=== PATIENT | male | born 1995 | race Caucasian/White ===

== ENCOUNTER 2022-06-26 22:46 | Emergency (ER) | payer SELFPAY ==
[2022-06-26] MEDS ORDERED: Ibuprofen 600 MG Tab PO ONE (23:09)
== END 2022-06-27 00:19 | disposition home or self-care (01) ==
LOC: MW.ED 22:46
DX: S62.511A Displaced fracture of proximal phalanx of right thumb, initial encounter for closed fracture (principal); W55.22XA Struck by cow, initial encounter
CPT/HCPCS: 73140; 99283; A9270; 29131

== ENCOUNTER 2022-07-06 22:38 | Emergency (ER) | payer SELFPAY ==
[2022-07-06] MEDS ORDERED: Sodium Chloride 0.9% 2.5 ML Syringe FLUSH PRN (22:46)
[2022-07-06] MEDS ORDERED: Sodium Chloride 0.9% 10 ML Syringe FLUSH PRN (22:46)
[2022-07-06] MEDS ORDERED: Diphtheria,Pertussis(Acell),Tetanus Vaccine 0.5 ML Syringe IM ONE (22:48)
[2022-07-06] MEDS ORDERED: Sodium Chloride 0.9% 1,000 ML IV ONE (22:48)
[2022-07-06 22:58] LABS: BASOPHILS PERCENT AUTO 0.3 % (0.0-1.5); EOSINOPHILS ABSOLUTE AUTO 0.1 K/uL (0.0-0.7); HEMATOCRIT 46.7 % (38.0-50.0); HEMOGLOBIN 16.4 g/dL (13.0-17.0); LYMPHOCYTES ABSOLUTE AUTO 2.6 K/uL (0.6-2.4); LYMPHOCYTES PERCENT AUTO 18.7 % (16.0-40.0); MEAN CORPUSCULAR HEMOGLOBIN 31.7 pg (27.0-32.0); MEAN CORPUSCULAR HGB CONC 35.1 g/dL (31.0-37.0); MEAN CORPUSCULAR VOLUME 90.3 fL (80.0-98.0); MONOCYTES ABSOLUTE AUTO 1.1 K/uL (0.0-0.8); MONOCYTES PERCENT AUTO 7.9 % (0.0-15.0); NEUTROPHILS ABSOLUTE AUTO 10.2 K/uL (1.4-5.7); NEUTROPHILS PERCENT AUTO 72.1 % (48.0-80.0); NRBC ABSOLUTE 0 K/uL; PLATELET COUNT,PLT 288 K/uL (150-400); RED BLOOD CELL COUNT 5.17 M/uL (4.50-5.90); WHITE BLOOD CELL COUNT,WBC 14.12 K/uL (4.0-11.0)
[2022-07-06 23:21] LABS: A/G RATIO 1.2 (0.9-1.6); ALBUMIN 4.3 g/dL (3.4-5.0); BILIRUBIN TOTAL 0.7 mg/dL (0.2-1.0); CALCIUM 9.4 mg/dL (8.5-10.1); EST CRCL DRUG DOSING (CG) 121.79 mL/min; INR 1.01 (0.86-1.11); POTASSIUM,K 4.6 mmol/L (3.5-5.1)
[2022-07-06 23:27] LABS: APPEARANCE,URINE CLEAR; BILIRUBIN,URINE NEGATIVE (NEGATIVE); COLOR,URINE YELLOW; GLUCOSE,URINE NEGATIVE (NEGATIVE); KETONES,URINE NEGATIVE (NEGATIVE); LEUKOCYTE ESTERASE,URINE NEGATIVE (NEGATIVE); NITRITE,URINE NEGATIVE (NEGATIVE); OCCULT BLOOD,URINE NEGATIVE (NEGATIVE); PROTEIN,URINE TRACE mg/dL (NEGATIVE); UROBILINOGEN,URINE 0.2 EU/dL (<2.0)
[2022-07-06 23:59] LABS: BACTERIA,URINE FEW (NEGATIVE); EPITHELIAL CELLS,URINE FEW (NONE-FEW); MUCUS,URINE LIGHT (NONE-MOD); RBC,URINE 0-2 (0-2/HPF); WBC,URINE 0-2 (0-5/HPF)
== END 2022-07-07 01:00 | disposition other institution (70) ==
LOC: MW.ED 22:38
DX: S01.01XA Laceration without foreign body of scalp, initial encounter (principal); Z23 Encounter for immunization; W55.22XA Struck by cow, initial encounter
CPT/HCPCS: 12004; 36415; 70450; 70450-26; 80053; 81001; 85025; 85610; 90471; 90715; 99284-25

== ENCOUNTER 2022-12-07 03:01 | Emergency (ER) | payer SELFPAY ==
[2022-12-07] MEDS ORDERED: Albuterol/Ipratropium 3.0-0.5 MG/3 ML Neb Soln NEB ONE (03:13)
[2022-12-07 03:57] LABS: CORONAVIRUS COVID-19 NAA NEGATIVE (NEGATIVE); INFLUENZA A NAA NEGATIVE (NEGATIVE); INFLUENZA B NAA NEGATIVE (NEGATIVE)
== END 2022-12-07 04:09 | disposition home or self-care (01) ==
LOC: MW.ED 03:01
DX: J40 Bronchitis, not specified as acute or chronic (principal); Z20.822 Contact with and (suspected) exposure to COVID-19
CPT/HCPCS: 0240U; 71045; 99285; 99283; J7620-GY

== ENCOUNTER 2023-07-02 12:35 | Emergency (ER) | payer SELFPAY | END 2023-07-02 15:58 | disposition home or self-care (01) | LOC: MW.ED 12:35 | DX: M25.572 Pain in left ankle and joints of left foot (principal); Z75.8 Other problems related to medical facilities and other health care | CPT/HCPCS: 73610-26-LT; 73610-LT; 73630-26-LT; 73630-LT; 99283 ==